=== PATIENT | male | born 1955 | race Two or more races ===

== ENCOUNTER 2020-04-24 07:27 | Outpatient (CLI) | payer OTHER | END 2020-04-24 07:33 | disposition home or self-care (01) | LOC: LAB 07:27 | DX: E78.70 Disorder of bile acid and cholesterol metabolism, unspecified (principal) ==

== ENCOUNTER 2020-06-05 09:02 | Outpatient (CLI) | payer OTHER | END 2020-06-05 09:07 | disposition home or self-care (01) | LOC: LAB 09:02 | PROVIDERS: ATTEND Internal Medicine | DX: I10 Essential (primary) hypertension (principal); R63.4 Abnormal weight loss; E55.9 Vitamin D deficiency, unspecified ==

== ENCOUNTER 2020-06-10 12:40 | Outpatient (CLI) | payer OTHER | END 2020-06-10 12:46 | disposition home or self-care (01) | LOC: LAB 12:40 | PROVIDERS: ATTEND Internal Medicine | DX: M79.18 Myalgia, other site (principal); Z11.4 Encounter for screening for human immunodeficiency virus [HIV] ==

== ENCOUNTER 2020-09-17 13:34 | Outpatient (CLI) | payer OTHER | END 2020-09-17 14:36 | disposition home or self-care (01) | LOC: SONOGRAMA 13:34 → MAMO-SONO 13:45 → SONOGRAMA 14:36 | PROVIDERS: ATTEND Urology | DX: N40.0 Benign prostatic hyperplasia without lower urinary tract symptoms (principal) ==

== ENCOUNTER 2020-10-03 14:08 | Outpatient (CLI) | payer OTHER | END 2020-10-03 14:23 | disposition home or self-care (01) | LOC: MRI 14:08 | DX: M75.121 Complete rotator cuff tear or rupture of right shoulder, not specified as traumatic (principal) | CPT/HCPCS: 73218 ==